=== PATIENT | female | born 1955 | race African-American/Black ===

== ENCOUNTER 2022-03-15 08:38 | Emergency (ER) | payer MEDICARE, SELFPAY ==
[2022-03-15 09:10] VITALS: BP 133/89; PULSE 100; RESP 18; TEMP 37.2; O2SAT 94; BMI 21.6
--- NOTE | 2022-03-15 10:16 | ED_ITS ---
HPI - SOB/Dyspnea General Chief Complaint: Shortness of Breath/Dyspnea Stated Complaint: Shortness of breath Time Seen by Provider: 03/15/22 10:04 History of Present Illness HPI Narrative: This 66-year-old female comes in reporting shortness of breath. She has an occasional cough. She was seen around a week ago and prescribed 5 days of prednisone. She also had an albuterol inhaler. She states that she felt much better when on the prednisone but now that this has been discontinued she is feeling short of breath again. She is not a smoker. She states that she is otherwise in good health. She does not feel ill with the infection but does have occasional cough. She does not report any chest pain and does not have any unilateral limb pain or swelling. She arrives here with normal vital signs and oximetry at 94% on room air. Related Data Previous Rx's Medication Instructions Recorded albuterol sulfate 90 mcg/actuation 2 inh inhalation Q4-6H PRN #1 ea 03/15/22 breath activated powder inhaler benzonatate 200 mg capsule 200 mg PO BID #10 caps 03/15/22 prednisone 10 mg tablet 20 mg PO DAILY #18 tabs 03/15/22 Allergies Allergy/AdvReac Type Severity Reaction Status Date / Time No Known Drug Allergies Allergy Verified 03/15/22 09:12 Review of Systems Status of ROS: Reports: 10 or more systems reviewed and unremarkable except as noted in History and below Narrative: Constitutional: No fevers, no weight gain or loss. Eyes: No discharge. No vision changes. HENT: No congestion, no sore throat, no ear pain. Cardiovascular: No chest pain, no palpitations. Respiratory: Shortness of breath as described above. Some wheezes and occasional cough. Gastrointestinal: No abdominal pain, no vomiting, no diarrhea. Genitourinary: No dysuria, no hematuria. Musculoskeletal: Normal range of motion. Skin: No rashes, no pruritis. Neurological: No dizziness, weakness, sensory change, speech change. Endo/Heme/Allergies: No bruising or bleeding. No polydipsia. Pysch: no suicidality, no anxiety, no insomnia. All other systems reviewed and are negative. Exam Narrative: Exam Narrative: Constitutional: Well-developed, well-nourished, no acute distress. HEENT: Normocephalic, atraumatic. Neck: Normal range of motion. Nontender. Supple. Heart: Regular. No murmurs. Normal rate. Intact distal pulses. Lungs: Clear to auscultation. No chest discomfort. A few wheezes were heard in the 1st breaths listen to by auscultation. Abdomen: Normal bowel sounds. Nontender. No rebound tenderness. Genitalia: Deferred. Back: No midline tenderness. Normal range of motion. Extremities: Normal range of motion. No injury. Skin: Intact. No rash. Warm. No erythema or pallor. Neurologic: No altered sensation. No weakness. Alert and oriented. Psychiatric: No suicidality. No anxiety or depression. No insomnia. Nursing notes and vitals signs are reviewed. Const: Vital Signs, click to edit/add: Vital Signs - 24 hr 03/15/22 09:10 Temperature 99.0 F Pulse Rate [Left P ulse Oximeter] 100 Respiratory Rate 18 Blood Pressure [Ri ght Upper Arm] 133/89 Pulse Oximetry 94 Oxygen Delivery Me thod Room Air Course Vital Signs Vital signs: Initial Vital Signs Temperature 99.0 F 03/15/22 09:10 Temperature Source Temporal Artery Scan 03/15/22 09:10 Pulse Rate 100 03/15/22 09:10 Pulse Rhythm 03/15/22 09:10 Pulse Strength 3+ Normal 03/15/22 09:10 Respiratory Rate 18 03/15/22 09:10 Blood Pressure 133/89 03/15/22 09:10 Blood Pressure Mean 103 03/15/22 09:10 Blood Pressure Position Sitting 03/15/22 09:10 Pulse Oximetry 94 03/15/22 09:10 Oxygen Delivery Method 03/15/22 09:10 Vital Signs Temperature 99.0 F 03/15/22 09:10 Pulse Rate 100 03/15/22 09:10 Respiratory Rate 18 03/15/22 09:10 Blood Pressure 133/89 03/15/22 09:10 Pulse Oximetry 94 03/15/22 09:10 Oxygen Delivery Method 03/15/22 09:10 Temperature 99.0 F 03/15/22 09:10 Pulse Rate 100 03/15/22 09:10 Respiratory Rate 18 03/15/22 09:10 Blood Pressure 133/89 03/15/22 09:10 Pulse Oximetry 94 03/15/22 09:10 Oxygen Delivery Method 03/15/22 09:10 MDM - SOB/Dyspnea MDM Narrative Medical decision making narrative: This patient comes in with recurrent shortness of breath. This was improved while on prednisone but now that she is out of that medicine and her albuterol she feels short of breath again. She does arrive with normal vital signs and does not appear to be in any acute distress. She is not using accessory muscles for breathing. I did recommend lab and imaging studies to further evaluate the cause for her shortness of breath. The patient states that she has from [place] and wishes to return to her primary physician there for this kind of workup. She did received prescription for prednisone, albuterol, and benzonatate. At the time of discharge the patient appears safe for outpatient management. The treatment plan is reviewed along with written and verbal return precautions. Reasons to return and the importance of close followup were also reviewed. Discharge Plan Discharge Clinical Impression: Asthma with acute exacerbation Patient Disposition: Home, Self-Care Condition: Stable Additional Instructions: Take medications as needed and indicated. Follow up with MD for further workup or return if worsening. Prescriptions: New prednisone 10 mg tablet 20 mg PO DAILY Qty: 18 0RF Rx Instructions: Take 3 tablets daily for 3 days, then 2 tablets daily for 3 days, then 1 tablet daily. albuterol sulfate 90 mcg/actuation aerosol powdr breath activated 2 inh inhalation Q4-6H PRNQty: 1 0RF benzonatate 200 mg capsule 200 mg PO BID Qty: 10 0RF Stand Alone Forms: ENJORE Info Instructions
== END 2022-03-15 10:35 | disposition home or self-care (01) ==
LOC: ED 10:33
PROVIDERS: Emergency Provider Emergency Medicine Emergency Medical Services
DX: J45.901 Unspecified asthma with (acute) exacerbation (principal)
CPT/HCPCS: 99283; 99284

== ENCOUNTER 2024-04-21 14:46 | Emergency (ER) | payer BC, SELFPAY ==
[2024-04-21] VITALS (9 sets, daily range): BP systolic 122–181; BP diastolic 66–87; PULSE 84–94; RESP 13–16; TEMP 36.2; O2SAT 96–100; BMI 22.6
--- OUTSIDE RECORDS SUMMARY | 2024-04-21 14:48 | XMS_ITS | Clinical Summary ---
Author Organization [facility] Address [place], [place] [address] Care Team Providers Care Nursing Care Attendant Name Role Phone Ana Grewal MD Primary Care Provider [phone] Allergies No known active allergies Medications b complex vitamins (VITAMIN B COMPLEX) capsule Take 1 capsule by mouth once daily. Active calcium carbonate-vit D3, 600 mg-400 units, (CALTRATE PLUS 600 MG-400 UNIT TABLET) tablet Take 1 Tablet by mouth two times daily. 4 Active calcium carbonate-vitami n D3, 600 mg-400 unit, 600 mg-10 mcg (400 unit) tabletIndication s:Age-related osteoporosis without current pathological fracture Take 1 Tablet by mouth two times daily with meals. 180 Tablet 3 4 Active fluticasone propion-salmeter oL (Wixela Inhub) 100-50 mcg/dose diskus inhalerIndicatio ns:Mild intermittent reactive airway disease without complication Inhale 1 Puff by mouth two times daily. 60 Each 11 4 Active albuterol HFA (PRO-AIR; VENTOLIN; PROVENTIL) 90 mcg/actuation inhalerIndicatio ns:Mild intermittent reactive airway disease without complication Inhale 1-2 Puffs by mouth every 4 hours if needed for Shortness Of Breath or Wheezing. 1 Each 2 4 Active albuterol HFA (PRO-AIR; VENTOLIN; PROVENTIL) 90 mcg/actuation inhalerIndicatio ns:Mild intermittent reactive airway disease without complication Inhale 1-2 Puffs by mouth every 4 hours if needed for Shortness Of Breath or Wheezing. 1 Each 4 03/26/20 24 Discontin ued(Reord er (E-cancel not sent)) Active Problems Problem Noted Date Diagnosed Date Chronic bronchitis 04/14/2022 Abnormal chest x-ray 04/14/2022 Overview (04/16/2022): The ascending aortic shadow appears enlarged. Primary tricompartmental ost eoarthritis of right knee, worst in the patellofemoral compartment 08/03/2018 Aguilar's cyst of knee, right 07/20/2018 Encounters Date Type Department Care Team Description 03/26/2024 1:30 PM TIMBER INSPECTOR Office Visit [facility] [address] [place] [address] Jsese Grewal MD Medicare ANNUAL (subsequent) Visit; Neck Pain/problem; Immunization/Injectio n 03/26/2024 Travel 03/26/2024 Telephone [facility] [address] [place], [place] [id number] Ana Grewal MD 01/24/2024 Refill [facility] [address] [place], [place] [id number] Ana Grewal MD Refill Request (Wixela and Calcium ) from Last 3 Months Immunizations Name Administration Dates Next Due COVID-19 VACCINE SPIKEVAX (M ODERNA 50MCG/0.5ML) 12YO+ PFS 03/26/2024 COVID-19 vaccine (Pfizer-Bio NTech 30mcg/0.3mL) PFMDV 07/22/2020,07/01/2020 Influenza, High-dose Inactivated 03/22/2024,12/17 Influenza, High-dose Quadriv alent Inactivated 02/11/2020 Influenza, IIV3 (Age >=3 years) 02/04/2011,02/05,05/13/2004 Influenza, IIV4 06/03/2018, 7,04/26/2016,2014 Influenza, Inactivated AIIV4 (Age 65+ Years) Preserv Free 01/19/2023,05/20/2022,02/12/2021 Pneumococcal Conj 20-valent (Prevnar 20) 05/20/2022 Pneumococcal Poly,23-Valent (Pneumovax) 02/12/2021 TD, UNSPECIFIED 09/26/1999 Td (Age >=7 Years) 02/12/2021,09/26/1999, 000 Tdap 08/10/2010 Family History Medical History Relation Name Comments Cancer-prostate Father Cancer-colon Mother Cancer-breast No Family History Cancer-ovarian No Family History Relation Name Status Comments Father Alive Mother Alive Social History Tobacco Use Types Packs/Day Years Used Date Smoking Tobacco: Never Smokeless Tobacco: Never Tobacco Cessation:Counseling Given: No Alcohol Use Standard Drinks/Week Comments Yes 0 (1 standard drink = 0.6 oz pur e alcohol) socially [facility] Utilities Answer Date Recorded Do you have trouble paying f or utilities (for example, heat, electricity, water, phone)? Yes 09/27/2023 PHQ-2 Answer Date Recorded PHQ-2 TOTAL SCORE 0 03/26/2024 Social Connections Answer Date Recorded Do you often feel lonely or isolated from those around you? 0 09/27/2023 Financial Resource Strain Answer Date R ecorded Difficulty of Paying Living Expenses 3 01/27/2022 Difficulty of Paying Living Expenses Not on file 01/27/2022 Food Insecurity Answer Date Recorded Do you worry your food will run out before you are able to buy more? 1 09/27/2023 Transportation Needs Answer Date Record ed Does lack of transportation keep you from medica l appointments? 1 09/27/2023 Does lack of transportation keep you from work, meetings or getting things that you need? 1 09/27/2023 Housing Stability Answer Date Recorded What is your housing situation today? 1 09/27/2023 Comments No Sex and Gender Information Value Date Recorded Sex Assigned at Not on file Legal Sex Female 6:52 AM TIMBER INSPECTOR Gender Identity Not on file Sexual Orientation Not on file Obstetrics History Last Filed Vital Signs Vital Sign Reading Time Taken Comments Blood Pressure 128/64 03/26/2024 1:33 PM TIMBER INSPECTOR Pulse 70 03/26/2024 1:33 PM TIMBER INSPECTOR Temperature 37.1 C (98.7 F) 09/27/2023 12:30 PM CDT Respiratory Rate 16 09/27/2023 12:30 PM CDT Oxygen Saturation 100% 09/27/2023 12:30 PM CDT Inhaled Oxygen Concentration - - Weight 64.4 kg (142 lb) 03/26/2024 1:33 PM TIMBER INSPECTOR Height 166.4 cm (5' 5.5) 03/26/2024 1:33 PM TIMBER INSPECTOR Body Mass Index 23.27 03/26/2024 1:33 PM TIMBER INSPECTOR Plan of Treatment Health Maintenance Due Date Last Done Comments Colonoscopy through age 75 1998 Zoster (shingles) series for age 50+ (1 of 2) 06/25/2003 RSV vaccine for adults or (1 - Risk 60-74 years 1-dose series) 2013 Mammogram for age 45-75 05/20/2023 05/20/19 23, 04/07/2021, 07/28/2010, Additional history exists BMI (ht and wt on same day) for age 18+ 03/26/2025 03/26/2024, 01/19/2023, 05/20/2022, Additional history exists Depression screening for age 12+ 03/26/2025 03/26/2024, 01/19/2023, 02/12/2021, Additional history exists Medicare Wellness for age 65+ 03/27/2025, 05/20/2022, 02/12/2021 Lipids for age 45-75 05/20/2027 05/20/2022, 02/13/20 21 Tetanus booster 02/12/2031 02/12/2021, /08/2010, 09/26/1999, Additional history exists Tdap Completed 08/10/2010 DEXA/DXA scan for age 65+ Completed 12/25/2018 Hepatitis C screening for ag e 18-79 Completed 02/12/2021 Pneumococcal series for age 50+ Completed , 02/12/2021 Influenza for age 65+ Completed 03/22/2024 , 01/19/2023, 05/20/2022, Additional history exists COVID-19 vaccine series Completed 03/26/20 24, 05/24/2023, 05/12/2021, Additional history exists Medical Devices Implanted Type Area Tank Welder Device Identifier Shelf Expiration Date Model / Serial / Lot Wire Kirs .[id number] Type F - [id number] Implanted:Qty: 3 on 09/12/2008 at [facility] Right: Foot [employer] [id number] / / 2 113 3 23APR 2009 [employer] [id number] Asnis Micro - [id number] Implanted:Qty: 1 on 08/14/2010 at [facility] Left: Foot [employer] [id number]# / / [id number] Wire Kirs .[id number] Smoothx6/Pk - [id number] Implanted:Qty: 1 on 08/14/2010 at [facility] Left: Foot J [employer] 0# / / [id number] Explanted Type Area Tank Welder Device Identifier Shelf Expiration Date Model / Serial / Lot Kwire Asnis Micro 1.2mmx3.0mm - [id number] Explanted:Qty: 1 on 08/14/2010 at [facility] Left: Foot [employer] [id number]# / / [id number] K-Wire Asnis Micro .[id number] - [id number] Explanted:Qty: 1 on 08/14/2010 at [facility] Left: Foot [employer] [id number]# / / [id number] Wire Kirs .[id number] Smoothx6/Pk - [id number] Explanted:Qty: 1 on 08/14/2010 at [facility] Left: Foot J [employer] 0# / / Procedures Procedure Name Priority Date/Time Associated Diagnosis Comments XR MAMMO CROW BILAT SCREEN Routine 05/20/2022 1:32 PM TIMBER INSPECTOR Routine adult health maintenance LC LIPID PANEL AND CHOL/HDL RATIO Routine 05/20/2022 12:38 PM TIMBER INSPECTOR Lipid screening ANTI HCV Routine 02/12/2021 12:45 PM CDT Need for hepatitis C screening test XR DXA BONE DENSITY 2 SITES AXIAL Routine 12/25/2018 2:40 PM CDT Disorder of bone Osteoporosis screening from Last 3 Months or Most Recently Relevant to Health Maintenance Results * XR MAMMO CROW BILAT SCREEN (05/20/2022 1:32 PM TIMBER INSPECTOR) Anatomical Region Laterality Modality BREASTS, Breast Left, Breast Right Bilateral Mammography Impressions 05/21/2022 10:43 AM TIMBER INSPECTOR There is no radiographic evidence for malignancy. Recommend annual mammograms. MAMMOGRAM ASSESSMENT: ACR 1 Negative PATIENTS: You will also receive a letter with your examination results in an easy to read format. If you have questions about your results, please contact your referring provider. Narrative 05/21/2022 10:43 AM TIMBER INSPECTOR For Patients: As a result of the Cures Act, medical imaging exams and procedure reports are released immediately into your electronic medical record. You may view this report before your referring provider. If you have questions, please contact your health care provider. XR MAMMO CROW BILAT SCREEN [[id number]] CLINICAL HISTORY: This is an asymptomatic 66 y.o. patient. INDICATION FOR EXAM: Mammogram Screening. TECHNIQUE: CC & MLO views were obtained. This study was evaluated with the assistance of Computer-Aided Detection. Breast Tomosynthesis was used in interpretation. COMPARISON FILM: Yes 03/29/21 [facility] FINDINGS: The breasts are heterogeneously dense, which may obscure small masses. There are no dominant masses, suspicious micro calcifications or areas of architectural distortion. us Ana Grewal MD MAMMO Final Result * (ABNORMAL) LC LIPID PANEL AND CHOL/HDL RATIO (05/20/2022 12:38 PM TIMBER INSPECTOR) Cholesterol, Total 266(H) 100 - 199 mg/dL 05/22/2022 11:08 AM [facility] Triglycerides 64 0 - 149 mg/dL 05/22/2022 11:08 AM TIMBER INSPECTOR [facility] HDL Cholesterol 158 >39 mg/dL 11:08 AM [facility] Comment: Results confirmed on dilution. VLDL Cholesterol [place] 10 5 - 40 mg/dL 05/22/2022 11:[address] [facility] ([facility]) LDL Chol Calc ([facility]) 98 0 - 99 mg/dL 05/22/2022 11:[address] [facility] ([facility]) T. Chol/HDL Ratio 1.7 0.0 - 4.4 ratio 05/22/2022 11:[address] [facility] ([facility]) Comment: T. Chol/HDL Ratio Men Women 1/2 Avg.Risk 3.4 3.3 Avg.Risk 5.0 4.4 2X Avg.Risk 9.6 7.1 3X Avg.Risk 23.4 11.0 Blood BLOOD SPECIMEN / Unknown Venipuncture / Unknown 05/20/2022 12:38 PM TIMBER INSPECTOR 05/20/2022 12:38 PM TIMBER INSPECTOR Narrative [facility] ([facility]) - 05/22/2022 11:08 AM TIMBER INSPECTOR Performed at: [address] [id number] Mis Manager: Luis M Sanchez MD, Phone: [phone] us Ana Grewal MD SEND OUTS Final Result [facility] ([facility]) [facility] [place] [address], [place] * ANTI HCV [46079.2] (02/12/2021 12:45 PM CDT) HEPATITIS C ANTIBODY Non-React leif Non-React leif 02/12/2021 8:44 PM CDT [facility] Comment:Antibodies to HCV no t detected; does not exclude the possibility of exposure to HCV. Blood BLOOD SPECIMEN / Unknown Venipuncture / Unknown 02/12/2021 12:45 PM CDT 02/12/2021 12:45 PM CDT us Ana Grewal MD SEND OUTS Final Result [facility] [address] [place] [address], * XR DXA BONE DENSITY 2 SITES AXIAL (12/25/2018 2:40 PM CDT) Anatomical Region Laterality Modality Spine, HIPS, HIPL, HIPR Other Narrative 12/28/2018 6:45 PM CDT Bone Density Interpretation Is scan interpretable? Lumbar spine Yes left hip Yes Indication for scan: INITIAL SCAN FOR SCREENING Prior Scan for comparison: NONE Skeletal sites scanned: L1-3, left femoral neck and left total hip Current therapy for bone loss: NONE Patient identified risk factors: MENOPAUSE < AGE 40 and SEDENTARY LIFESTYLE Result at the lumbar spine: BMD (gm/cm2): 0.885 T score: -2.4 Result at the left femoral neck: BMD (gm/cm2): 0.811 T score: -1.6 Result at the left total hip: BMD (gm/cm2): 0.863 T score: -1.1 FRAX Risk Calculation: 10 year Total Fracture Risk: 4 % 10 year Hip Fracture Risk: <1 % Conclusion: OSTEOPENIA Recommendations: 1. Follow current guidelines for calcium and vitamin D intake. 2. Evaluate for fall prevention if indicated and regular exercise is encouraged. The National Osteoporosis Foundation recommends medical treatment for post-menopausal women and men >50 with: 1) prior hip or vertebral fracture; 2) T-score at spine or hip -2.5 or lower; or 3) when total fracture risk is 20% or greater or hip fracture risk is 3% or greater in the setting of low bone mass (T-score -1.0 to -2.5). CONSIDER ALL CLINICAL FACTORS IN MAKING TREATMENT DECISIONS. Repeat bone density is recommended in 3-5 years if clinically indicated. Kalyani Luis MD .................... 12/28/2018 6:44 PM us Ana Grewal MD DEXA Final Result from Last 3 Months or Most Recently Relevant to Health Maintenance Insurance MEDICARE PART A HB ONLY [facility] MEDICARE ADVANTAGE MR Advance Directives * Full Code (Latest Code Status on File) Date Activated Date Inactivated Comments 12/04/2009 8:14 AM 12/05/2009 2:29 AM * Full Code Date Activated Date Inactivated Comments 09/12/2008 12:56 PM 09/12/2008 7:23 PM Care Teams Nursing Care Attendant Relationship Specialty Start Date End Date Ana Grewal MD [address] [place] [address] PCP - General Family Practice 01/30/21
--- OUTSIDE RECORDS SUMMARY | 2024-04-21 14:48 | XMS_ITS | Clinical Summary ---
Author Organization [facility] Address [address] [place] [address] Care Team Providers Care Daycare Worker Name Role Phone Unavailable Primary Care Provider Unavailabl e Source Comments PLEASE NOTE, if this patient is a minor, it may be UNLAWFUL to discuss sensitive information that is contained in these records (such as FAMILY PLANNING, MENTAL HEALTH or SUBSTANCE ABUSE) with the minor patient's parent or other person without the patient's specific authorization.[facility] Social History Tobacco Use Types Packs/Day Years Used Date Smoking Tobacco: Never Assessed Comments Unknown Sex and Gender Information Value Date Recorded Sex Assigned at Not on file Legal Sex Female 10:38 AM PST Gender Identity Not on file Sexual Orientation Not on file Plan of Treatment Not on file
--- OUTSIDE RECORDS SUMMARY | 2024-04-21 14:48 | XMS_ITS | Encounter Summary ---
Author Organization [facility] Address [address], [place] [address] Care Team Providers Care Construction Code Administrator Name Role Phone No Primary/Referring, Phy Primary Care Provider Unavailable Encounter Details Date Type Department Care Team (Late st Contact Info) Description 01/15/2019 Correspondence [facility] [address] [place], [place] [address] [place] [address] BASELINE TB SCREENING TOOL FOR HCWS Social History Tobacco Use Types Packs/Day Years Used Date Smoking Tobacco: Never Smokeless Tobacco: Never Alcohol Use Standard Drinks/Week Comments Yes 4 (1 standard drink = 0.6 oz pur e alcohol) Sex and Gender Information Value Date Recorded Sex Assigned at Not on file Gender Identity Not on file Sexual Orientation Not on file documented as of this encounter Plan of Treatment Not on file documented as of this encounter Visit Diagnoses Not on filedocumented in this encounter Care Teams Construction Code Administrator Relationship Specialty Start Date End Date No Primary/Referring, Thomasy PCP - General 11/15/16 documented as of this encounter
--- OUTSIDE RECORDS SUMMARY | 2024-04-21 14:48 | XMS_ITS | Encounter Summary ---
Author Organization [facility] Address [address] [address] Care Team Providers Care Abalone Fisherman Name Role Phone No Primary/Referring, Phy Primary Care Provider Unavailable Encounter Details Date Type Department Care Team (Late st Contact Info) Description 01/15/2019 Correspondence [place] [facility] [address] [place], [place] [address] [place] [address] [facility] PT AUTH TO VIEW EPIC CHART Social History Tobacco Use Types Packs/Day Years [...] on filedocumented in this encounter Care Teams Abalone Fisherman Relationship Specialty Start Date End Date No Primary/Referring, Tremayne PCP - General 11/15/16 documented as of this encounter
--- OUTSIDE RECORDS SUMMARY | 2024-04-21 14:48 | XMS_ITS | Encounter Summary ---
[facility] Address [address] [place] [address] Care Team Providers Care Client Experience Administrator Name Role Phone No Primary/Referring, Phy Primary Care Provider Unavailable Encounter Details Date Type Department Care Team (Late st Contact Info) Description 06/22/2017 Correspondence None No Primary/Referring, Phy PROOF OF DELIVERY Social History Tobacco Use Types Packs/Day Years [...] on filedocumented in this encounter Care Teams Client Experience Administrator Relationship Specialty Start Date End Date No Primary/Referring, Phy PCP - General 11/15/16 documented as of this encounter
--- OUTSIDE RECORDS SUMMARY | 2024-04-21 14:48 | XMS_ITS | Clinical Summary ---
[facility] Address [address] [address] Care Team Providers Care Plate Cleaner Name Role Phone No Primary/Referring, Phy Primary Care Provider Unavailable Source Comments You are receiving this document as you are listed as the primary care provider,follow-up provider, or the patient has been referred to you for consultation.This is in compliance with the Medicare and[facility] EHR Incentive Program,which states Providers who transition their patient to another setting of careor provider of care or refers their patient to another provider of care shouldprovide summary care record for each transition of care or referral. [facility] Allergies No known active allergies Medications Medication Sig Dispensed Refills Start Date End Date Status Multiple Vitamin (MULTI-VITAMIN OR) 1 tab 3x per week, prn Active Calcium Carbonate-Vit D-Min (CALCIUM 1200 OR) Active MELATONIN OR Active fluticasone propionate (FLONASE) 50 MCG/ACT nasal solutionIndications: Post-nasal drip Place 2 Sprays into both nostrils daily. 16 g 06/13/2020 Active Additional Information Patient not taking.Reported on 09/21/2023 fluticasone-salmeter ol (ADVAIR) 100-50 MCG/ACT diskus inhaler 1 Puff two times a day. 09/14/2023 Active calcium carb-cholecalciferol 600-10 MG-MCG tablet Take 1 Tablet by mouth two times a day. 07/28/2023 Active Active Problems Problem Noted Date Diagnosed Date Constipation 12/09/2016 Anemia 12/09/2016 Vitamin D deficiency 12/09/2016 Myalgia 12/09/2016 Cervical cancer screening 11/25/2015 Overview (12/08/2016): From visit on 07/26/2006: She is postmenopausal and is status post total hysterectomy for what sounds like possibly premalignant or early malignant uterine tumor. This was done 19 years ago. No pap testing on file. Plan: No further pap testing indicated. ; Pap test history Immunizations Name Administration Dates Next Due Flu Vac (3+ yrs) 02/04/2011,02/05/2010, 5 Influenza IIV3 (Trivalent) F luzone Highdose, 65+ Yrs (32869) 12/28/2018 Influenza IIV4 (Quadrivalent ) 0.5mL (95095) 06/03/2018,02/14/2017,04/26/2016, 015 Influenza IIV4 (Quadrivalent ) Fluzone, 65+ Yrs 02/11/2020 Td 08/17/1999 Td (7+ yrs) 09/26/1999 Tdap 08/10/2010 Family History Medical History Relation Name Comments Asthma Father Cancer, Prostate Father Cataract Father Cancer, Colon Mother Asthma Brother Cancer, Prostate Brother Seizure Disorder Brother Diabetes, Type II Maternal Grandfather ADHD Other NEPHEW Enuresis Other NEPHEW Cancer, Ovary Paternal Grandmother Migraines Sister Glaucoma Negative Family History Macular Degeneration Negative Family History Relation Name Status Comments Father Alive Mother Alive Brother Alive Maternal Grandfather Maternal Grandmother Other NEPHEW Alive Paternal Grandfather Paternal Grandmother Sister Alive Social History Tobacco Use Types Packs/Day Years Used Date Smoking Tobacco: Never Smokeless Tobacco: Never Alcohol Use Standard Drinks/Week Comments Yes 4 (1 standard drink = 0.6 oz pur e alcohol) Sex and Gender Information Value Date Recorded Sex Assigned at Not on file Gender Identity Not on file Sexual Orientation Not on file Last Filed Vital Signs Vital Sign Reading Time Taken Comments Blood Pressure 120/78 06/13/2020 1:39 PM [facility] Pulse 83 06/13/2020 1:39 PM [facility] Temperature 36.6 C (97.8 F) 06/13/2020 1:39 PM [facility] Respiratory Rate 18 06/13/2020 1:39 PM [facility] Oxygen Saturation 100% 06/22/2017 10:38 AM [facility] [facility] Inhaled Oxygen Concentration - - Weight 62.6 kg (138 lb) 06/13/2020 1:39 PM [facility] [facility] Height 170.2 cm (5' 7) 06/03/2018 1:22 PM [facility] Body Mass Index 21.61 06/03/2018 1:22 PM [facility]ER Plan of Treatment Health Maintenance Due Date Last Done Comments Medicare Welcome Visit 1955 Zoster/Shingles (1 of 2) 06/25/2003 Mammogram 11/17/2017 11/17/2016 Dexa 2018 Colonoscopy 08/31/2019 08/30/2016 (Completed) Cholesterol 01/07/2020 01/06/2015 DTaP/Tdap/Td (2 - Tdap) 08/10/2020 08/11/19 11, 09/26/1999, 08/17/1999 COVID-19 Vaccine ( season) 2023 05/24/2023, 05/12/2021, 07/22/2020, Additional history exists Influenza (#1) 2023 01/19/2023, 02/0 05/2022, 02/12/2021, Additional history exists RSV (1 - 1-dose 75+ series) 2028 Hep C Screening (Preventive Services) Completed 08/14/2014 Pneumococcal 65+ Yrs Completed 05/20/2022, 02/13/20 21 HepA Aged Out No longer eligi ble based on patient's age to complete this topic HepB Aged Out No longer eligi ble based on patient's age to complete this topic Hib Aged Out No longer eligi ble based on patient's age to complete this topic IPV (Polio) Aged Out No longer eligi ble based on patient's age to complete this topic MCV4 Aged Out No longer eligi ble based on patient's age to complete this topic Procedures Procedure Name Priority Date/Time Associated Diagnosis Comments MM MAMMOGRAM SCREENING BILAT W CAD Routine 11/17/2016 10:57 AM CDT LIPID PANEL & DIRECT LDL (IF NEEDED) Routine 01/06/2015 11:15 AM CDT Screening cholesterol level HEPATITIS C ANTIBODY, WITH REFLEX Routine 08/14/2014 11:50 AM CDT Fatigue from Last 3 Months or Most Recently Relevant to Health Maintenance Results * MM Mammogram Screening Bilat W CAD (11/17/2016 10:57 AM CDT) Anatomical Region Laterality Modality Breast Bilateral Mammography Impressions 11/18/2016 2:42 PM CDT : ACR BI-RADS Category 1: Negative RECOMMENDATION: Follow Up Imaging in 12 months - Bilateral The results and recommendations of this examination will be communicated to the patient. Narrative 11/18/2016 2:42 PM CDT MM MAMMOGRAM SCREENING BILAT W CAD performed on 11/17/16 Compared to: 07/28/2010 [facility] Bilateral Screening Mammogram FINDINGS: Bilateral screening mammogram was performed with the assistance of Computer-Aided Detection. The breasts are heterogeneously dense, which may obscure small masses. There is no radiographic evidence of malignancy. Seda Randall MD RAD ISAAC * LIPID PANEL AND DIRECT LDL(IF NEEDED) (01/06/2015 11:15 AM CDT) Hours Fasting 12 hours [facility] Cholesterol 197 0 - 199 mg/dl [facility] Triglyceride 70 0 - 149 mg/dl [facility] HDL 107 >40 mg/dl [facility] LDL, Calc. 76 0 - 129 mg/dl [facility] Non HDL Chol, Calc 90 mg/dl [facility] 01/06/2015 11:1 5 AM CDT 01/06/2015 12:12 PM CDT Narrative [facility] - 01/06/2015 4:40 PM CDT Performed at [facility], [address] [place] [address] Krysta Coombs MD LAB_1 [facility] [phone] * HEPATITIS C ANTIBODY, WITH REFLEX (08/14/2014 11:50 AM CDT) Anti-HCV Negative (Non Reactive) NEGNR [facility] Comment:Does Not Rule Out In fection with HCV 08/14/2014 11:5 0 AM CDT 08/14/2014 11:58 AM CDT Narrative [facility] - 08/15/2014 11:14 AM CDT Performed at [facility], [address] [place] [address], [place] [address] Shayan Jose JACQUELYN LAB_1 [facility] [phone] from Last 3 Months or Most Recently Relevant to Health Maintenance Care Teams Plate Cleaner Relationship Specialty Start Date End Date No Primary/Referring, Phy PCP - General 11/15/16
--- NOTE | 2024-04-21 14:54 | CRLHL7_ITS ---
For Patients: As a result of the Century Cures Act, medical imaging exams and procedure reports are released immediately into your electronic medical record. You may view this report before your referring provider. If you have questions, please contact your health care provider. INDICATION: Fell; pain COMPARISON: Two-view study right humerus April 21, 2024. TECHNIQUE: Single radiograph right shoulder. FINDINGS: There is anterior dislocation right shoulder. Dictated by Alfredito Ramirez MD @ 04/21/2024 3:23:43 PM (Electronically Signed)
--- NOTE | 2024-04-21 15:01 | ED.UPPEXIN ---
HPI - Extremity Injury (Upper) General Chief Complaint: Extremity Pain/Injury, Upper <Meir Camargo MD - Last Filed: 04/21/24 17:21> Stated Complaint: dislocated shoulder, <Meir Camargo MD - Last Filed: 04/21/24 17:21> Time Seen by Provider: 04/21/24 14:49 <Meir Camargo MD - Last Filed: 04/21/24 17:21> History of Present Illness HPI narrative: This 68-year-old female comes in with an injury to her right shoulder that occurred just prior to arrival. She went to urgent care and an x-ray is obtained there which was just one view of her shoulder. There is no sign of fracture but there is a possibility of dislocation. Patient states that she was on a stool up above the kitchen sink in the stool slipped out and she came down onto the sink and injured her right shoulder. She did not hit her head or have loss of consciousness. She does not report any other injury. She does appear to have some anterior fullness typical of dislocation. <Meir Camargo MD - Last Filed: 04/21/24 17:21> Related Data Home Medications: Home Medications ?Medication ?Instructions ?Recorded ?Confirmed calcium 600 mg (as 1 tab PO BID 04/21/24 04/21/24 carbonate)-vitamin D3 10 mcg (400 unit) tablet fluticasone 100 mcg-salmeterol 50 inhalation 04/21/24 04/21/24 mcg/dose blistr powdr for inhalation (Wixela Inhub) <Meir Camargo MD - Last Filed: 04/21/24 17:21> Allergies/Adverse Reactions: Allergies Allergy/AdvReac Type Severity Reaction Status Date / Time No Known Drug Allergies Allergy Verified 04/21/24 13:14 <Meir Camargo MD - Last Filed: 04/21/24 17:21> Review of Systems Status of ROS: Reports: 10 or more systems reviewed and unremarkable except as noted in History and below <Meir Camargo MD - Last Filed: 04/21/24 17:21> Narrative: Constitutional: No fevers, no weight gain or loss. Eyes: No discharge. No vision changes. HENT: No congestion, no sore throat, no ear pain. Cardiovascular: No chest pain, no palpitations. Respiratory: No shortness of breath, no wheezes, no cough. Gastrointestinal: No abdominal pain, no vomiting, no diarrhea. Genitourinary: No dysuria, no hematuria. Musculoskeletal: Right shoulder injury with decreased range of motion. Skin: No rashes, no pruritis. Neurological: No dizziness, weakness, sensory change, speech change. Endo/Heme/Allergies: No bruising or bleeding. No polydipsia. Pysch: no suicidality, no anxiety, no insomnia. All other systems reviewed and are negative. <Meir Camargo MD - Last Filed: 04/21/24 17:21> [facility] Social History: Social History Smoking Status: Never smoker Do you use any of these nicotine containing products: None Second hand tobacco smoke exposure: No How often do you have a drink containing alcohol: never How often do you have six or more drinks on one occasion: Never AUDIT-C Alcohol total score: 0 Non-prescribed substance use: denies use service: No <Meir Camargo MD - Last Filed: 04/21/24 17:21> Exam Narrative: Exam Narrative: Constitutional: Well-developed, well-nourished, no acute distress. HEENT: Normocephalic, atraumatic. Neck: Normal range of motion. Nontender. Supple. Heart: Intact distal pulses. Lungs: No chest discomfort. No wheezes, rhonchi, or rales. Abdomen: Nontender. Back: Normal range of motion. Extremities: Right shoulder has anterior fullness typical of dislocation. Skin: Intact. No rash. Warm. No erythema or pallor. Neurologic: No altered sensation. No weakness. Alert and oriented. Psychiatric: No suicidality. No anxiety or depression. No insomnia. Nursing notes and vitals signs are reviewed. <eMir Camargo MD - Last Filed: 04/21/24 17:21> Const: Vital Signs, click to edit/add: Vital Signs - 24 hr 04/21/24 14:49 04/21/24 16:01 04/21/24 16:02 Temperature 97.2 F L Pulse Rate 85 89 Pulse Rate [Pulse Oximeter] 84 Respiratory Rate 16 Blood Pressure 153/87 H Blood Pressure [Ri ght Upper Arm] 181/83 H Pulse Oximetry 98 97 98 Oxygen Delivery Me thod Room Air Oxygen Flow Rate 04/21/24 16:15 04/21/24 16:30 04/21/24 16:32 Temperature Pulse Rate 88 84 Pulse Rate [Pulse Oximeter] Respiratory Rate 15 Blood Pressure 134/80 Blood Pressure [Ri ght Upper Arm] Pulse Oximetry 100 99 Oxygen Delivery Me thod Oxygen Flow Rate 04/21/24 16:33 04/21/24 17:12 04/21/24 17:29 Temperature Pulse Rate 94 91 Pulse Rate [Pulse Oximeter] Respiratory Rate 13 Blood Pressure 122/66 Blood Pressure [Ri ght Upper Arm] Pulse Oximetry 100 96 100 Oxygen Delivery Me thod Nasal Cannula Oxygen Flow Rate 4 <Meir Camargo MD - Last Filed: 04/21/24 17:21> Vital Signs, click to edit/add: Vital Signs - 24 hr 04/21/24 14:49 04/21/24 16:01 04/21/24 16:02 Temperature 97.2 F L Pulse Rate 85 89 Pulse Rate [Pulse Oximeter] 84 Respiratory Rate 16 Blood Pressure 153/87 H Blood Pressure [Ri ght Upper Arm] 181/83 H Pulse Oximetry 98 97 98 Oxygen Delivery Me thod Room Air Oxygen Flow Rate 04/21/24 16:15 04/21/24 16:30 04/21/24 16:32 Temperature Pulse Rate 88 84 Pulse Rate [Pulse Oximeter] Respiratory Rate 15 Blood Pressure 134/80 Blood Pressure [Ri ght Upper Arm] Pulse Oximetry 100 99 Oxygen Delivery Me thod Oxygen Flow Rate 04/21/24 16:33 04/21/24 17:12 04/21/24 17:29 Temperature Pulse Rate 94 91 Pulse Rate [Pulse Oximeter] Respiratory Rate 13 Blood Pressure 122/66 Blood Pressure [Ri ght Upper Arm] Pulse Oximetry 100 96 100 Oxygen Delivery Me thod Nasal Cannula Oxygen Flow Rate 4 <Agatha Jaquez MD - Last Filed: 04/21/24 18:26> Course Course ED Course: A CT I will do or son I was asked to assist for providing anesthesia for shoulder reduction by Dr. Camargo. Respiratory therapy was present as well. Patient had appropriate oxygen, hemodynamic monitoring. She was getting supplemental nasal cannula oxygen. Patient required significant propofol, 300 mg in incremental dosing as well as a total of 5 mg of IV Valium. She had no hemodynamic or airway/respiratory compromise through this. She quickly came out of this. She will be discharged to home after she is met appropriate post anesthesia care guidelines and is discharged from the ER for her shoulder dislocation. <Agatha Jaquez MD - Last Filed: 04/21/24 18:26> Vital Signs Vital signs: Initial Vital Signs Temperature 97.2 F L 04/21/24 14:49 Temperature Source Temporal Artery Scan 04/21/24 14:49 Pulse Rate 84 04/21/24 14:49 Respiratory Rate 16 04/21/24 14:49 Blood Pressure 181/83 H 04/21/24 14:49 Blood Pressure Mean 115 H 04/21/24 14:49 Blood Pressure Position Sitting 04/21/24 14:49 Pulse Oximetry 98 04/21/24 14:49 Oxygen Delivery Method Room Air 04/21/24 14:49 Vital Signs Temperature 97.2 F L 04/21/24 14:49 Pulse Rate 84 04/21/24 14:49 Respiratory Rate 16 04/21/24 14:49 Blood Pressure 181/83 H 04/21/24 14:49 Pulse Oximetry 98 04/21/24 14:49 Oxygen Delivery Method Room Air 04/21/24 14:49 Temperature 97.2 F L 04/21/24 14:49 Pulse Rate 91 04/21/24 17:12 Respiratory Rate 13 04/21/24 16:33 Blood Pressure 122/66 04/21/24 17:12 Pulse Oximetry 100 04/21/24 17:29 Oxygen Delivery Method Nasal Cannula 04/21/24 17:29 Oxygen Flow Rate 4 04/21/24 17:29 <Meir Camargo MD - Last Filed: 04/21/24 17:21> Initial Vital Signs Temperature 97.2 F L 04/21/24 14:49 Temperature Source Temporal Artery Scan 04/21/24 14:49 Pulse Rate 84 04/21/24 14:49 Respiratory Rate 16 04/21/24 14:49 Blood Pressure 181/83 H 04/21/24 14:49 Blood Pressure Mean 115 H 04/21/24 14:49 Blood Pressure Position Sitting 04/21/24 14:49 Pulse Oximetry 98 04/21/24 14:49 Oxygen Delivery Method Room Air 04/21/24 14:49 Vital Signs Temperature 97.2 F L 04/21/24 14:49 Pulse Rate 84 04/21/24 14:49 Respiratory Rate 16 04/21/24 14:49 Blood Pressure 181/83 H 04/21/24 14:49 Pulse Oximetry 98 04/21/24 14:49 Oxygen Delivery Method Room Air 04/21/24 14:49 Temperature 97.2 F L 04/21/24 14:49 Pulse Rate 91 04/21/24 17:12 Respiratory Rate 13 04/21/24 16:33 Blood Pressure 122/66 04/21/24 17:12 Pulse Oximetry 100 04/21/24 17:29 Oxygen Delivery Method Nasal Cannula 04/21/24 17:29 Oxygen Flow Rate 4 04/21/24 17:29 <Agatha Jaquez MD - Last Filed: 04/21/24 18:26> Medications Administered Medications: Discontinued Medications Generic Name Dose Route Start Last Admin Trade Name Freq PRN Reason Stop Dose Admin Diazepam 5 mg 04/21/24 17:04 04/21/24 16:25 Diazepam 5 Mg/Ml Inj IV 04/21/24 17:05 5 mg ONCE ONE Administration Sodium Chloride 500 mls @ 500 mls/hr 04/21/24 17:04 04/21/24 16:15 0.9 % Sodium Chloride 500 Ml IV 04/21/24 18:03 500 mls/hr .Q1H ONE Administration Propofol 200 mg 04/21/24 15:39 04/21/24 16:15 Propofol 10 Mg/Ml Inj IVP 04/21/24 15:40 200 mg ONCE ONE Administration Propofol 200 mg 04/21/24 17:04 04/21/24 16:25 Propofol 10 Mg/Ml Inj IVP 04/21/24 17:05 100 mg ONCE ONE Administration <Meir Camargo MD - Last Filed: 04/21/24 17:21> Discontinued Medications Generic Name Dose Route Start Last Admin Trade Name Freq PRN Reason Stop Dose Admin Diazepam 5 mg 04/21/24 17:04 04/21/24 16:25 Diazepam 5 Mg/Ml Inj IV 04/21/24 17:05 5 mg ONCE ONE Administration Sodium Chloride 500 mls @ 500 mls/hr 04/21/24 17:04 04/21/24 16:15 0.9 % Sodium Chloride 500 Ml IV 04/21/24 18:03 500 mls/hr .Q1H ONE Administration Propofol 200 mg 04/21/24 15:39 04/21/24 16:15 Propofol 10 Mg/Ml Inj IVP 04/21/24 15:40 200 mg ONCE ONE Administration Propofol 200 mg 04/21/24 17:04 04/21/24 16:25 Propofol 10 Mg/Ml Inj IVP 04/21/24 17:05 100 mg ONCE ONE Administration <Agatha Jaquez MD - Last Filed: 04/21/24 18:26> MDM - Extremity Injury (Upper) MDM Narrative Medical decision making narrative: This patient comes in with an injury to her right shoulder. X-ray images indicate no sign of fracture but there is dislocation of the humeral head anteriorly. I did administer an intra-articular injection of 1% lidocaine into the glenohumeral joint for symptomatic relief. She received a total of 6 mL in this injection. I attempted to reduce the dislocation but was unsuccessful without any further medications to help her relax. I did recommend propofol sedation and the patient is agreeable to this plan. After acquiring informed consent Dr. Castaneda assisted in this procedure by administering propofol. She eventually received a total of 300 mg of propofol to attempt to get sufficient sedation and muscle relaxation. During this titrating of propofol she also received total of 5 mg of Ativan intravenously. I was able to successfully reduce her humeral head back into its proper place. This was confirmed by follow-up x-ray. The patient was placed in a sling. She is okay to be discharged home. I did provide an [employer] prescription for [place]. <Meir Camargo MD - Last Filed: 04/21/24 17:21> Discharge Plan Discharge Clinical Impression: Anterior shoulder dislocation <Meir Camargo MD - Last Filed: 04/21/24 17:21> Patient Disposition: Home w/ Parent or Adult <Meir Camargo MD - Last Filed: 04/21/24 17:21> Condition: Improved <Meir Camargo MD - Last Filed: 04/21/24 17:21> Instructions: Shoulder Dislocation (ED) <Meir Camargo MD - Last Filed: 04/21/24 17:21> Additional Instructions: Wear sling and use pain medicines as needed and directed. Increase activity as tolerated. Follow up with primary physician or orthopedic clinic for recheck. <Meir Camargo MD - Last Filed: 04/21/24 17:21> Prescriptions: No Action fluticasone propion-salmeterol [Wixela Inhub] 100-50 mcg/dose blister with device inhalation Patient Comments: [NO ORIGINAL SIG] calcium carbonate-vitamin D3 600 mg-10 mcg (400 unit) tablet 1 tab PO BID <Meir Camargo MD - Last Filed: 04/21/24 17:21> Follow Up/Referrals: Provider,Not a Local [Primary Care Provider] - <Meir Camargo MD - Last Filed: 04/21/24 17:21> Stand Alone Forms: MyHealth Info Instructions <Meir Camargo MD - Last Filed: 04/21/24 17:21>
[2024-04-21] MEDS: PROPOFOL 10 MG/ML INJ 200 MG IVP ×2 (16:15→16:25)
[2024-04-21] MEDS: 0.9 % SODIUM CHLORIDE 500 ML 500 ML IV (16:15)
[2024-04-21] MEDS: diazePAM 5 MG/ML inj IV (16:25)
--- NOTE | 2024-04-21 16:31 | CRLHL7_ITS ---
For Patients: As a result of the Century Cures Act, medical imaging exams and procedure reports are released immediately into your electronic medical record. You may view this report before your referring provider. If you have questions, please contact your health care provider. INDICATION: Postreduction. FINDINGS: The humeral head is now articulating normally with the glenoid fossa consistent with a successfully reduced anterior shoulder dislocation. There is a small Hill-Sachs defect of the humeral head. No other bone or joint abnormality is identified. Dictated by Satya Osborne MD @ 04/21/2024 5:17:15 PM (Electronically Signed)
--- NOTE | 2024-04-21 16:46 | RESP.RT ---
Airway monitored for conscious sedation. Pt tolerated well. Pt pre oxygenated before procedure with 4L NC, SpO2 100 throughout the procedure. ETCO2 monitored, 33-35. Pt recovered well and quickly. See nursing notes for vitals.
--- OUTSIDE RECORDS SUMMARY | 2024-04-21 17:10 | XMS_ITS | Encounter Summary ---
Author Organization [facility] Address [address] [address] Care Team Providers Care Executive Administrative Assistant Name Role Phone No Primary/Referring, Phy Primary Care Provider Unavailable Encounter Details Date Type Department Care Team (Late st Contact Info) Description 01/15/2019 Correspondence [facility] [address] [place], [place] [address]e. S[address] [place] [address] BASELINE TB SCREENING TOOL FOR [...] on filedocumented in this encounter Care Teams Executive Administrative Assistant Relationship Specialty Start Date End Date No Primary/Referring, Thomasy PCP - General 11/15/16 documented as of this encounter
--- OUTSIDE RECORDS SUMMARY | 2024-04-21 17:10 | XMS_ITS | Encounter Summary ---
[facility] Organization [facility] Address [address] [place] [id number] Care Team Providers Care Unit Coordinator Name Role Phone No Primary/Referring, Phy Primary [...] on filedocumented in this encounter Care Teams Unit Coordinator Relationship Specialty Start Date End Date No Primary/Referring, Phy PCP - General 11/15/16 documented as of this encounter
--- OUTSIDE RECORDS SUMMARY | 2024-04-21 17:10 | XMS_ITS | Clinical Summary ---
Author Organization [facility] Address [address], [place] [address] Care Team Providers Care Adjunct Instructor Of Women'S Studies Name Role Phone No Primary/Referring, Phy Primary Care Provider Unavailable Source Comments You are receiving this document as you are listed as the primary care provider,follow-up provider, or the patient has been referred to you for consultation.This is in compliance with the Medicare and[facility] EHR Incentive Program,which states Providers who transition their patient to another setting of careor provider of care or refers their patient to another provider of care shouldprovide summary care record for each transition of care or referral. [facility] No known active allergies Medications Medication [...] IIV3 (Trivalent) F luzone Highdose, 65+ Yrs (76397) 12/28/2018 Influenza IIV4 (Quadrivalent ) 0.5mL (96197) 06/03/2018,02/14/2017,04/26/2016, 015 Influenza IIV4 (Quadrivalent ) Fluzone, [...] Comments Blood Pressure 120/78 06/13/2020 1:39 PM BILINGUAL LOAN PROCESSOR Pulse 83 06/13/2020 1:39 PM BILINGUAL LOAN PROCESSOR Temperature 36.6 C (97.8 F) 06/13/2020 1:39 PM BILINGUAL LOAN PROCESSOR Respiratory Rate 18 06/13/2020 1:39 PM BILINGUAL LOAN PROCESSOR Oxygen Saturation 100% 06/22/2017 10:38 AM BILINGUAL LOAN PROCESSOR Inhaled Oxygen Concentration - - Weight 62.6 kg (138 lb) 06/13/2020 1:39 PM BILINGUAL LOAN PROCESSOR Height 170.2 cm (5' 7) 06/03/2018 1:22 PM BILINGUAL LOAN PROCESSOR Body Mass Index 21.61 06/03/2018 1:22 PM BILINGUAL LOAN PROCESSOR Plan of Treatment Health Maintenance Due Date [...] - 01/06/2015 4:40 PM CDT Performed at [facility], [address] [place] [address] Krysta Coombs MD LAB_1 [facility] [phone] * HEPATITIS C ANTIBODY, WITH REFLEX (08/14/2014 11:50 AM CDT) Anti-HCV Negative (Non Reactive) NEGNR [facility] Comment:Does Not Rule Out In fection with HCV 08/14/2014 11:5 0 AM CDT 08/14/2014 11:58 AM CDT Narrative [facility] - 08/15/2014 11:14 AM CDT Performed at [facility], [address] [place] [address], [place] [address] Shayan Jose JACQUELYN LAB_1 [facility] [phone] from Last 3 Months or Most Recently Relevant to Health Maintenance Care Teams Adjunct Instructor Of Women'S Studies Relationship Specialty Start Date End Date No Primary/Referring, Phy PCP - General 11/15/16
--- OUTSIDE RECORDS SUMMARY | 2024-04-21 17:10 | XMS_ITS | Clinical Summary ---
Author Organization [facility] Address [place], [place] [address] Care Team Providers Care Compliance Consultant Name Role Phone Ana Greawl MD Primary Care Provider [phone] Allergies No known active allergies Medications b [...] Department Care Team Description 03/26/2024 1:30 PM LABORATORY CLERK Office Visit [facility] [address] [place] [address] Jesse Grewal MD Medicare ANNUAL (subsequent) Visit; Neck Pain/problem; Immunization/Injectio n 03/26/2024 Travel 03/26/2024 Telephone [facility] [address] [place], [place] [id number] Ana Grewal MD 01/24/2024 Refill [facility] [address] [place], [place] [id number] Ana Grewal MD Refill Request (Wixela and [...] on file Legal Sex Female 6:52 AM LABORATORY CLERK Gender Identity Not on file Sexual Orientation Not on file Obstetrics History Last Filed Vital Signs Vital Sign Reading Time Taken Comments Blood Pressure 128/64 03/26/2024 1:33 PM LABORATORY CLERK Pulse 70 03/26/2024 1:33 PM LABORATORY CLERK Temperature 37.1 C (98.7 F) 09/27/2023 12:30 PM CDT Respiratory Rate 16 09/27/2023 12:30 PM CDT Oxygen Saturation 100% 09/27/2023 12:30 PM CDT Inhaled Oxygen Concentration - - Weight 64.4 kg (142 lb) 03/26/2024 1:33 PM LABORATORY CLERK Height 166.4 cm (5' 5.5) 03/26/2024 1:33 PM LABORATORY CLERK Body Mass Index 23.27 03/26/2024 1:33 PM LABORATORY CLERK Plan of Treatment Health Maintenance Due Date [...] history exists Medical Devices Implanted Type Area Head Operator Sulfide Device Identifier Shelf Expiration Date Model / Serial / Lot Wire Kirs .[id number] Type F - [id number] Implanted:Qty: 3 on 09/12/2008 at [facility] Right: Foot [employer] [id number] / / 2 113 3 23APR 2009 [employer] [id number] [employer] - [id number] Implanted:Qty: 1 on 08/14/2010 at [facility] Left: Foot [employer] [id number]# / / [id number] Wire Kirs .[id number] Smoothx6/Pk - [id number] Implanted:Qty: 1 on 08/14/2010 at [facility] Left: Foot [employer] 0# / / [id number] Explanted Type Area Head Operator Sulfide Device Identifier Shelf Expiration Date Model / Serial / Lot Kwire Asnis Micro 1.2mmx3.0mm - [id number] Explanted:Qty: 1 on 08/14/2010 at [facility] Left: Foot [employer] [id number]# / / [id number] K-Wire Asnis Micro .[id number] - [id number] Explanted:Qty: 1 on 08/14/2010 at [facility] Left: Foot [employer] [id number]# / / [id number] Wire Kirs .[id number] Smoothx6/Pk - [id number] Explanted:Qty: 1 on 08/14/2010 at [facility] Left: Foot [employer] 0# / / Procedures Procedure Name Priority Date/Time Associated Diagnosis Comments XR MAMMO CROW BILAT SCREEN Routine 05/20/2022 1:32 PM LABORATORY CLERK Routine adult health maintenance LC LIPID PANEL AND CHOL/HDL RATIO Routine 05/20/2022 12:38 PM LABORATORY CLERK Lipid screening ANTI HCV Routine 02/12/2021 12:45 PM CDT Need for hepatitis C screening test XR DXA BONE DENSITY 2 SITES AXIAL Routine 12/25/2018 2:40 PM CDT Disorder of bone Osteoporosis screening from Last 3 Months or Most Recently Relevant to Health Maintenance Results * XR MAMMO CROW BILAT SCREEN (05/20/2022 1:32 PM LABORATORY CLERK) Anatomical Region Laterality Modality BREASTS, Breast Left, Breast Right Bilateral Mammography Impressions 05/21/2022 10:43 AM LABORATORY CLERK There is no radiographic evidence for malignancy. Recommend annual mammograms. MAMMOGRAM ASSESSMENT: ACR 1 Negative PATIENTS: You will also receive a letter with your examination results in an easy to read format. If you have questions about your results, please contact your referring provider. Narrative 05/21/2022 10:43 AM LABORATORY CLERK For Patients: As a result of the Cures Act, medical imaging exams and procedure reports are released immediately into your electronic medical record. You may view this report before your referring provider. If you have questions, please contact your health care provider. XR MAMMO CROW BILAT SCREEN [[id number]] CLINICAL HISTORY: This is an asymptomatic 66 [...] PANEL AND CHOL/HDL RATIO (05/20/2022 12:38 PM LABORATORY CLERK) Cholesterol, Total 266(H) 100 - 199 mg/dL 05/22/2022 11:08 AM [facility] Triglycerides 64 0 - 149 mg/dL 05/22/2022 11:08 AM LABORATORY CL[facility] HDL Cholesterol 158 >39 mg/dL 11:08 AM [facility] Comment: Results confirmed on dilution. VLDL Cholesterol [place] 10 5 - 40 mg/dL 05/22/2022 11:08 AM [facility] ([facility]) LDL Chol Calc ([facility]) 98 0 - 99 mg/dL 05/22/2022 11:08 AM [facility] ([facility]) T. Chol/HDL Ratio 1.7 0.0 - 4.4 ratio 05/22/2022 11:08 AM [facility] ([facility]) Comment: T. Chol/HDL Ratio Men Women 1/2 Avg.Risk 3.4 3.3 Avg.Risk 5.0 4.4 2X Avg.Risk 9.6 7.1 3X Avg.Risk 23.4 11.0 Blood BLOOD SPECIMEN / Unknown Venipuncture / Unknown 05/20/2022 12:38 PM LABORATORY CLERK 05/20/2022 12:38 PM LABORATORY CLERK Narrative [facility] ([facility]) - 05/22/2022 11:08 AM LABORATORY CLERK Performed at: [address] [id number] Clinical Unit Educator: Luis M Sanchez MD, Phone: [phone] us Ana Grewal MD SEND OUTS Final Result [facility] ([facility]) [facility] [place] [address], [place] * ANTI HCV [[id number]] (02/12/2021 12:45 PM CDT) HEPATITIS C ANTIBODY Non-React leif Non-React leif 02/12/2021 8:44 PM CDT [facility] Comment:Antibodies to HCV no t detected; does not exclude the possibility of exposure to HCV. Blood BLOOD SPECIMEN / Unknown Venipuncture / Unknown 02/12/2021 12:45 PM CDT 02/12/2021 12:45 PM CDT us Ana Grewal MD SEND OUTS Final Result [facility] [address] [place] [address], * XR DXA BONE DENSITY 2 SITES [...] Maintenance Insurance MEDICARE PART A HB ONLY [facility] MEDICARE ADVANTAGE MR Advance Directives * Full Code (Latest Code Status on File) Date Activated Date Inactivated Comments 12/04/2009 8:14 AM 12/05/2009 2:29 AM * Full Code Date Activated Date Inactivated Comments 09/12/2008 12:56 PM 09/12/2008 7:23 PM Care Teams Compliance Consultant Relationship Specialty Start Date End Date Ana Grewal MD [address] [place] [address] PCP - General Family Practice 01/30/21
--- OUTSIDE RECORDS SUMMARY | 2024-04-21 17:10 | XMS_ITS | Clinical Summary ---
Author Organization [facility] Address [address] [place] [address] Care Team Providers Care Ornamental Metal Erector Name Role Phone Unavailable Primary Care Provider [...]
--- OUTSIDE RECORDS SUMMARY | 2024-04-21 17:10 | XMS_ITS | Encounter Summary ---
Author Organization [facility] Address [address], [place] [address] Care Team Providers Care Operations And Maintenance Supervisor Name Role Phone No Primary/Referring, Phy Primary Care Provider Unavailable Encounter Details Date Type Department Care Team (Late st Contact Info) Description 01/15/2019 Correspondence [facility] [address] [place], [place] [address]. [address] [place] [address] [facility] PT AUTH TO VIEW EPIC CHART [...] on filedocumented in this encounter Care Teams Operations And Maintenance Supervisor Relationship Specialty Start Date End Date No Primary/Referring, Trem[place]ne PCP - General 11/15/16 documented as of this encounter
== END 2024-04-21 17:38 | disposition home or self-care (01) ==
PROVIDERS: Emergency Provider Emergency Medicine Emergency Medical Services
DX: S43.014A Anterior dislocation of right humerus, initial encounter (principal); W19.XXXA Unspecified fall, initial encounter
CPT/HCPCS: 23655; 73030; 99156; 99284; J2704; J3360; J7030